=== PATIENT | male | born 1980 | race Caucasian/White ===

== ENCOUNTER 2017-12-08 07:30 | Emergency (ER) | payer OTHER ==
[~2017-12-08] VITALS: Ht 175.3 cm; Wt 81.6 kg
[2017-12-08 07:43] VITALS: Ht 175.3 cm; Wt 81.6 kg
[2017-12-08 10:43] VITALS: BP 97/58
== END 2017-12-08 10:43 | disposition home or self-care (01) ==
LOC: ED 07:30
DX: M54.5 Low back pain (principal); M54.6 Pain in thoracic spine; M54.2 Cervicalgia; Z98.52 Vasectomy status; V49.88XA Car occupant (driver) (passenger) injured in other specified transport accidents, initial encounter; Y93.89 Activity, other specified; Y92.89 Other specified places as the place of occurrence of the external cause; Y99.8 Other external cause status
CPT/HCPCS: 72072; J3010